=== PATIENT | female | born 1990 | race Caucasian/White ===

== ENCOUNTER 2017-01-19 15:58 | Emergency (ER) | payer SELFPAY ==
[~2017-01-19] VITALS: Ht 170.2 cm; Wt 126.0 kg
[~2017-01-19 15:58] MED LIST: BENZ100C97 PO; ESOM40CA PO; PRED10TA PO; VENL-69 PO; [UNRECOGNIZED DRUG - CODE] PO
--- OUTSIDE RECORDS SUMMARY | 2017-01-19 16:02 | XMS REPORT | Continuity of Care Document ---
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, recurrent, severe with psychotic symptoms 10/07/2015 F F43.10 Post-traumatic stress disorder, unspecified [place] Tapia 10/07/2015 F 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 [place] Tapia 10/07/2015 F Z56.9 Unspecified problems related to employment Maine Tapia 10/07/2015 F Z59.0 Homelessness Maine Tapia 10/07/2015 F Z59.5 Extreme poverty [place] Tapia 10/12/2015 F 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, recurrent, severe with psychotic symptoms Amandeep Resendiz S 10/12/2015 F F43.10 Post-traumatic stress disorder, unspecified LuisllaMarcow S 10/12/2015 F 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 Amandeep Resendiz S 10/12/2015 F Z56.9 Unspecified problems related to employment LuisstormyAmandeep snyder S 10/12/2015 F Z59.0 Homelessness Marco Resendizw S 10/12/2015 F Z59.5 Extreme poverty Amandeep Resendiz S 10/12/2015 F F43.10 Post-traumatic stress disorder, unspecified 10/12/2015 F 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 10/12/2015 F 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, recurrent, severe with psychotic symptoms 10/12/2015 F F43.10 Post-traumatic stress disorder, unspecified Amandeep Resendiz S 10/12/2015 F 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 Amandeep Resendiz S 10/12/2015 F Z56.9 Unspecified problems related to employment Amandeep Resendiz S 10/12/2015 F Z59.0 Homelessness Amandeep Resendiz S 10/12/2015 F Z59.5 Extreme poverty Amandeep Resendiz S 12/16/2015 F 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, recurrent, severe with psychotic symptoms Kayla Palmaa 12/16/2015 F F43.10 Post-traumatic stress disorder, unspecified Palma, Jane 12/16/2015 F 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 Kayla Palmaa 12/16/2015 F F43.10 Post-traumatic stress disorder, unspecified 12/16/2015 F 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 12/16/2015 F 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, recurrent, severe with psychotic symptoms 12/16/2015 F F43.10 Post-traumatic stress disorder, unspecified Amandeep Resendiz S 12/16/2015 F 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 Visit Date/Time Discharge Status Pt. Type Provider Facility Loc./Unit Complaint [id number] 10/12/2015 13:00:00 10/12/2015 23:59:59 CLS Unknown
--- OUTSIDE RECORDS SUMMARY | 2017-01-19 16:02 | XMS REPORT | Referral Summary ---
Author Author [facility], [facility] Organization [facility] Address Unknown Phone Unavailable Care Team Providers Care Electronic Organ Technician Name Role Phone No PCP, States Primary Care Physician [phone] Encounter Date(s): 11/03/16 - 11/03/16 [facility], [address] [place] [id number]- Discharge Diagnosis: Acute hand eczema Discharge Disposition: 01-Home or Self Care Attending Physician: Isaac Pedroza DO Admitting Physician: Isaac Pedroza DO Vital Signs Most recent to 1 oldest [Reference Range]: Temperature Tympanic 36.4 degC [36.6-38.1 degC] *LOW* (11/03/16 1:31 PM) Peripheral Pulse 93 bpm Rate [60-100 bpm] (11/03/16 1:31 PM) Respiratory Rate 18 br/min [14-20 br/min] (11/03/16 1:31 PM) Blood Pressure 118/70 mmHg [90-140/60-90 mmHg] (11/03/16 1:31 PM) SpO2 94 % (11/03/16 1:31 PM) Problem List Condition Effective Dates Status Health Status Informant Depression(Confirmed Active patient ) Morbid Active patient obesity(Confirmed) Allergies, Adverse Reactions, Alerts Substance Reaction Severity Status Cipro Medium Active egg-containing compound Active Flagyl Medium Active Medications Effexor XR 150 mg oral capsule, extended release 150 mg 1 caps, Oral, Daily, # 30 caps, 0 Refill(s) Start Date: 11/03/16 Status: Ordered Naprosyn 375 mg oral tablet 375 mg 1 tabs, Oral, BID, as needed for pain, # 20 tabs, 0 Refill(s) Start Date: 10/13/15 Status: Ordered predniSONE 20 mg oral tablet 20 mg 1 tabs, Oral, Daily, X 5 days, # 5 tabs, 0 Refill(s) Start Date: 11/03/16 Stop Date: 11/08/16 Status: Ordered triamcinolone 0.5% topical ointment 1 terrie, Topical, BID, X 30 days, # 45 g, 0 Refill(s), Pharmacy: [facility] #[id number] Start Date: 11/03/16 Stop Date: 12/03/16 Status: Ordered Results No data available for this section Immunizations No data available for this section Procedures No data available for this section Social History Social History Type Response Smoking Status Current every day smoker; Tobacco use per day: Pack Assessment and Plan Extracted from: Title: Office Visit Note Author: Isaac Pedroza DO Date: 11/03/16 Assessment/Plan Acute hand eczema 1. Prednisone 20 mg daily for 5 days. 2. Triamcinolone 05% ointment combined with Aquaphor ointment bid until resolved. 3. Wear gloves at all times when handling chemicals. 4. Follow up if not improving. Ordered: predniSONE, 20 mg 1 tabs, Oral, Daily, X 5 days, # 5 tabs, 0 Refill(s) Office Visit Level 3 New [id number]
--- OUTSIDE RECORDS SUMMARY | 2017-01-19 16:02 | XMS REPORT | Continuity of Care Document ---
Author Author Organization Address Unknown Phone Unavailable Support Name Relationship Address Phone KIMBERLY MOULTON DO Caregiver [address] [phone] Unavailable ALEXANDRIA FREITAS MD Caregiver [address] [place] [address] Unavailable DEVIN VILLALOBOS Next Of Kin [address] [place] [address] Insurance Providers Guarantor Patrica Villalobos Address [address] [place] [address] Email DENIED 16 Payer Self Pay Subscriber's Name JunibaljitPatrica Relationship 18 Self Chief Complaint and Reason for Visit Chief Complaint Cough,Fever,Flu,URI Reason for Visit [id number] Problems Active Problems Medical Problem Onset Date Status Acute bronchitis Unknown Acute Corns and callosities Unknown Acute Past Problems Medical Problem Onset Date Viral syndrome Unknown Medications Current Home Medications Medication Dose Units Route Directions Days Qty Instructions Start Date Benzonatate (Tessalon Perle) 100 Mg Capsule 100 Mg Oral Every 8 Hours for Cough 30 Capsule 06/20/15 Esomeprazole Magnesium (Nexium) 40 Mg Capsule. 1 Cap Oral Bedtime 30 Capsule 10/26/16 Hydrocodone/Chlorphen Polis (Tussionex Pennkinetic Susp) 480 Ml Sarai.er.12h 1 Tsp Oral Every 12 Hours for Cough 50 Milliliter 06/20/15 Prednisone 10 Mg Tablet 10 Mg Oral As Directed 24 Tablet 5 Tablets by mouth daily for 2 days THEN, 4 Tablets by mouth daily for 2 days THEN, 3 Tablets by mouth daily for 1 day THEN, 2 Tablets by mouth daily for 1 day THEN, 1 Tablet by mouth daily for 1 Day. 06/20/15 Prednisone 10 Mg Tablet 0 Oral Taper Qd 18 Tablet 30 mg daily x3 days 20 mg daily x3 days 10 mg daily x2 days 10/26/16 Venlafaxine Hcl (Venlafaxine Hcl Er) 150 Mg Cap.er.24h 150 Mg Oral Daily 10/26/16 Social History Social History Problem Response Recorded Date/Time Onset Date Status Hx Substance Use No 10/26/2016 6:44am Not Applicable Not Applicable Hx Alcohol Use No 10/26/2016 6:44am Not Applicable Not Applicable Tobacco Usage smoke 07/08/2015 9:37am Not Applicable Not Applicable Query Response Start Date Stop Date Smoking Status Current every day smoker Hospital Discharge Instructions No hospital discharge instructions. Plan of Care Discharge Date 10/26/16 7:00am Disposition 01 DISCHARGED HOME, SELF-CARE Condition at Discharge Stable Instructions/Education Provided Reactive Airways Disease (ED) Forms Provided Return to Work/School Permit Prescriptions See Medication Section Referrals KIMBERLY MOULTON DO Address: [address] [place] [phone] Additional Instructions/Education Prednisone taper as directed. Use Nexium or Prilosec as needed for the next week or so to help with indigestion symptoms. Follow-up with her primary care physician. Functional Status No functional status results. Allergies, Adverse Reactions, Alerts Allergen Type Severity Reaction Status Last Updated EGGS Allergy Unknown Active 10/26/16 Phenylephrine Allergy Unknown HYPERACTIVE Active 10/26/16 Ciprofloxacin Allergy Unknown RASH Active 10/26/16 Metronidazole Allergy Unknown RASH Active 10/26/16 Chlorpheniramine Allergy Unknown HYPERACTIVE Active 10/26/16 Immunizations Query Response on File Recorded Date/Time Hx Influenza Vaccination No 06/20/15 3:07pm Hx Tetanus, Diptheria, Pertussis No 06/20/15 3:07pm Hx Influenza Vaccination No 06/20/15 3:07pm Hx Tetanus, Diptheria, Pertussis No 06/20/15 3:07pm Hx Tetanus Toxoid Vaccination No 05/08/15 2:16pm Vital Signs Acute Vital Signs Vital Response Date/Time Temperature (Fahrenheit) 98.6 deg F (96.8 - 99.1) 10/26/2016 6:00am Temperature (Calculated Celsius) 37.05841 degrees C (36.0 - 37.3) 10/26/2016 6:00am Pulse Rate (adult) 86 bpm (60 - 100) 10/26/2016 6:00am Respiratory Rate 20 breaths/min (10 - 20) 10/26/2016 6:00am O2 Sat by Pulse Oximetry 96 % (90 - 100) 10/26/2016 6:00am Blood Pressure 138/72 mm Hg 10/26/2016 6:00am Height (Feet) 5 feet 10/26/2016 6:00am Height (Inches) 7.00 inches 10/26/2016 6:00am Weight (Kilograms) 126.700 kg 10/26/2016 6:00am Body Mass Index (BMI) 43.0 10/26/2016 6:00am Results No known relevant diagnostic tests, laboratory data and/or discharge summary. Procedures No known history of procedures. Encounters Encounter Location Arrival/Admit Date Discharge/Depart Date Attending Provider Departed Emergency Room 10/26/16 5:48am 10/26/16 7: 00am ALEXANDRIA FREITAS MD Recent Diagnosis
[2017-01-19 16:05] VITALS: Ht 170.2 cm; Wt 126.0 kg
--- OUTSIDE RECORDS SUMMARY | 2017-01-19 16:24 | XMS REPORT | Continuity of Care Document ---
Author Author [facility] Address Unknown Phone Unavailable Allergies Medications Medication [...] Z56.9 Unspecified problems related to employment Amandeep Rseendiz S 10/12/2015 F Z59.0 Homelessness Amandeep Resendiz [...] Procedures Code [place] [address] OFFICE/OUTPATIENT VISIT, Amandeep Severino 10/12/2015 14862 OFFICE/OUTPATIENT VISIT, Amandeep Severino 10/12/2015 85345 OFFICE/OUTPATIENT VISIT, Suyapa Null 12/16/2015 32770 OFFICE/OUTPATIENT VISIT, Suyapa Null 12/16/2015 Results Encounters ACCT No. Visit Date/Time Discharge Status Pt. Type Provider Facility Loc./Unit Complaint [id number] 10/12/2015 13:00:00 10/12/2015 23:59:59 CLS Unknown
[2017-01-19 16:46] LABS: BASOPHILS % (AUTO) 0.3 % (0-2); EOSINOPHILS # (AUTO) 0.2 T/MM3 (0-0.5); EOSINOPHILS % (AUTO) 1.8 % (0-4); HCT - HEMATOCRIT 42.6 % (36-46); HGB - HEMOGLOBIN 13.6 GM/DL (12-16); IMMATURE GRANULOCYTE # (AUTO) 0.02 T/MM3 (0.00-0.03); IMMATURE GRANULOCYTE % (AUTO) 0.2 % (0.0-0.5); LYMPHOCYTES # (AUTO) 3.5 T/MM3 (1-4.8); LYMPHOCYTES % (AUTO) 32.1 % (23-45); MEAN CORPUSCULAR HGB 26.5 UUG (26-34); MEAN CORPUSCULAR HGB CONC(MCHC 31.9 GM/DL (31-37); MEAN PLATELET VOLUME 9.3 UM3 (9.4-12.4); MONOCYTES # (AUTO) 0.5 T/MM3 (0-0.8); MONOCYTES % (AUTO) 4.4 % (0-9.0); NEUTROPHILS #(AUTO)-ABSOLUTE 6.7 T/MM3 (1.8-7.7); NEUTROPHILS % (AUTO) 61.2 % (33-66); RED BLOOD COUNT 5.13 M/MM3 (4.00-5.20); WBC - WHITE BLOOD COUNT 10.9 T/MM3 (4.5-11.0)
--- NOTE | 2017-01-19 16:51 | ERPDOC ---
Departure Disposition Decision Date: January 19, 2017 Disposition Decision Time: 16:47 Disposition: 01 DISCHARGED HOME, SELF-CARE Impression Impression Impression: Primary Impression: Metrorrhagia Additional Impression: Menorrhagia Menorrahagia type: with irregular cycle Qualified Codes: N92.1 - Excessive and frequent menstruation with irregular cycle Severity: Moderate Condition: Stable Seen By: Mid-level only Referrals: KIMBERLY MOULTON DO (Family) Patient Instructions: Dysfunctional Uterine Bleeding (ED) Problems/Meds/Labs Reviewed?: Yes Medications reviewed and manag: Yes Additional Instructions: Your hemoglobin today is in normal range. Follow up with Dr Moulton or [facility] for reevaluation when you are able to. Otherwise monitor bleeding. If it becomes excessive in amount (more than 2 pads saturated per hour) or any other issues/concerns then return to Er for reevaluation. Follow up care ordered?: Yes Mental Status: Alert HPI - Female General Chief Complaint: Female Urogenital Problems Stated Complaint: MENSTRATION FOR A MONTH Time Seen by Provider: 16:09 Source: patient Exam Limitations: no limitations HPI - Female Initial Comments She has a history of PCOS and has irreguar periods normally. She has one about every 6 months. Had a period in November of this year. About a month ago she started bleeding again and will have vaginal bleeding for a few days and then it will stop for a few days. This has gone off and on for a few weeks. She has not really had to wear a pad and the bleeding is mostly just when she wipes. She has had labs and an US to confirm her diagnosis of PCOS. Has not had intercourse in over a year so she is not concerned at all about . Does not have health insurance or a job at this time so came to ER for evaluation. Occurred At: home Onset: Gradual Duration: other (Over the last month) Severity/Quality: cramping Location: suprapubic Radiation: none Activities at Onset: none Associated Symptoms: abdominal pain (low abdominal pain), DENIES: diaphoresis, dysuria, fever/chills, loss of bladder control, lower back pain, lumps, mass, nausea/vomiting, nocturia, polyuria, swelling, syncope, urinary frequency Hx of Similar Symptoms: Yes Is Pt now?: No Allergies: Coded Allergies: EGGS (Verified Allergy, Unknown, 10/26/16) chlorpheniramine (Verified Allergy, Unknown, HYPERACTIVE, 10/26/16) ciprofloxacin (Verified Allergy, Unknown, RASH, 10/26/16) metronidazole (Verified Allergy, Unknown, RASH, 10/26/16) phenylephrine (Verified Allergy, Unknown, HYPERACTIVE, 10/26/16) Past History Past Medical History Metabolic: hyperthyroidism ENMT: dental problems Respiratory: asthma Surgical History Denies Surgeries General: other Family History Family History: Negative Vaccines Hx Influenza Vaccination: No Hx Tetanus, Diptheria, Pertuss: No Social History Smoking Status: Never smoker Substance Use Type: does not use Alcohol Intake: none Review of Systems Constitutional Constitutional: DENIES: chills, dizziness, fatigue, fever, weakness Cardiovascular Cardiac: DENIES: chest pain, orthopnea Rhythm/Rate: DENIES: irregular beat, palpitations Pulmonary Respiratory: DENIES: cough, dyspnea, sputum, tachypnea GI Upper Abdomen: DENIES: nausea, pain, vomiting Lower Abdomen: DENIES: constipation, diarrhea, pain General: DENIES: discharge, dysuria, frequency, hematuria, urgency Integumentary Skin: DENIES: rash Neurological General: DENIES: headache, numbness, tingling, weakness Physical Exam General General Nourishment: well nourished, well developed, appears stated age, no acute distress, adult General Body Habitus: well groomed Vitals and Pain First Documented Vital Signs Date Time Temp Pulse Resp B/P Pulse Ox O2 Delivery O2 Flow Rate FiO2 01/19/17 16:05 98.9 89 18 132/80 96 Room Air Weight: Kilograms: 126.000 Height (feet): 5 Height (inches): 7.00 Triage Pain Scale: RN VS reviewed by Provider: Yes Normal Exams: Neck: Full range of motion, without adenopathy, JVD, bruits or thyromegaly Chest/Resp: Clear all vo, with good airflow, and symmetry bilaterally CV: Regular rate and rhythm, without murmur or gallop, Pulses 2+ all extremities, capillary refill, <2 seconds all ext., no pedal edema noted Abdomen: Bowel sounds positive, soft, non-tender, non-distended, no hepatosplenomegaly, masses or bruits noted Lymphatic: No lymphadenopathy, or lymphedema noted Integumentary: No rashes, hives, or bruising noted Neurologic: Patient is alert, and oriented Psychiatric: Patient exhibits, appropriate attention, emotion and affect Differential Diagnoses Considering: Hemorrhage, Menorrhagia, Ovarian Cyst, PID, Ectopic , New Diagnosis, , UTI Progress Results/Orders Orders Procedure Category Date Status Time Cbc W/Auto LAB 01/19/17 Complete Diff-Reflex Manual Lab Results Laboratory Tests Test 01/19/17 16:41 White Blood Count 10.9T/MM3 Red Blood Count 5.13M/MM3 Hemoglobin 13.6GM/DL Hematocrit 42.6% Mean Corpuscular Volume 83.0UM3 Mean Corpuscular Hemoglobin 26.5UUG Mean Corpuscular Hemoglobin Concent 31.9GM/DL RDW Standard Deviation 45.8FL Platelet Count 319T/MM3 Mean Platelet Volume 9.3UM3 Immature Granulocyte % (Auto) 0.2% Neutrophils (%) (Auto) 61.2% Lymphocytes (%) (Auto) 32.1% Monocytes (%) (Auto) 4.4% Eosinophils (%) (Auto) 1.8% Basophils (%) (Auto) 0.3% Absolute Immature Granulocyte (auto 0.02T/MM3 Absolute Neutrophils (auto) 6.7T/MM3 Absolute Lymphocytes (auto) 3.5T/MM3 Absolute Monocytes (auto) 0.5T/MM3 Absolute Eosinophils (auto) 0.2T/MM3 Absolute Basophils (auto) 0.0T/MM3 Progress Progress We did discuss the management of PCOS today. She is not currently taking control and her bleeding is mild. Hgb is stable and in normal range. Will have her follow up with PCP and see about possible options. She would prefer not to take control as this is expensive. She does want to take something for the hair growth so suggested talking to Dr Moulton about Spironolactone. She cannot tolerate Metformin so does not want to take this. YOSELIN LIAO APRN January 19, 2017 16:51
[2017-01-19 17:00] VITALS: BP 129/79; PULSE 85; RESP 18; TEMP 98.9; O2SAT 97
== END 2017-01-19 17:00 | disposition home or self-care (01) ==
LOC: ED 15:58
DX: N92.1 Excessive and frequent menstruation with irregular cycle (principal)
CPT/HCPCS: 36415; 85025